=== PATIENT | female | born 1970 | race Caucasian/White ===

== ENCOUNTER 2018-03-20 16:28 | Inpatient (IN) | payer MEDICAID, OTHER ==
[2018-03-20] MEDS: SOD CHLORIDE 0.9% 500 ML IV (20:28)
[2018-03-20 20:56] LABS: ADD MAN DIFF? NO
[2018-03-20 20:57] LABS: BASOPHILS % 0.2 % (0.0-2.0); EOSINOPHILS % 0.4 % (0.0-7.0); HEMATOCRIT 40.1 % (37.0-47.0); HEMOGLOBIN 12.8 g/dl (12.0-16.0); LYMPHOCYTES # 1.4 10^3/ul (0.8-2.9); LYMPHOCYTES % 12.7 % (15.0-51.0); MEAN CORPUSCULAR HEMOGLOBIN 28.8 pg (29.0-33.0); MEAN CORPUSCULAR HGB CONC 31.9 g/dl (32.0-37.0); MEAN CORPUSCULAR VOLUME 90.1 fl (82.0-101.0); MEAN PLATELET VOLUME 11.1 fl (7.4-10.4); MONOCYTE # 0.8 10^3/ul (0.3-0.9); MONOCYTES % 7.3 % (0.0-11.0); NEUTROPHIL # 8.7 10^3/ul (1.6-7.5); PLATELET COUNT 222 10^3/UL (140-415); RED BLOOD COUNT 4.45 10^6/ul (4.20-5.40); RED CELL DISTRIBUTION WIDTH 14.6 % (11.5-14.5)
[2018-03-20 21:26] LABS: ALANINE AMINOTRANSFERASE 69 IU/L (13-69); ALBUMIN 3.7 g/dl (3.3-4.9); ALBUMIN/GLOBULIN RATIO 1.05; ALKALINE PHOSPHATASE 82 IU/L (42-121); ANION GAP 13 (8-16); ASPARTATE AMINO TRANSFERASE 46 IU/L (15-46); BILIRUBIN,INDIRECT 0.5 mg/dl (0-1.1); BILIRUBIN,TOTAL 0.5 mg/dl (0.2-1.3); BLOOD UREA NITROGEN 14 mg/dl (7-20); CALCIUM 8.8 mg/dl (8.4-10.2); CARBON DIOXIDE 26 mmol/L (21-31); CHLORIDE 103 mmol/L (97-110); CREATININE 0.74 mg/dl (0.44-1.00); GLUCOSE 107 mg/dl (70-220); LIPASE 94 U/L (23-300); SODIUM 138 mmol/L (135-144); TOTAL PROTEIN 7.2 g/dl (6.1-8.1)
[2018-03-20] MEDS: LIDOCAINE/MYLANTA 40 ML BTL PO (21:41)
[2018-03-20] MEDS: ONDANSETRON 4 MG INJ IV (21:41)
[2018-03-20 23:58] LABS: B-TYPE NATRIURETIC PEPTIDE 2850 PG/ML (0-125)
[2018-03-21] MEDS: ONDANSETRON 4 MG INJ IV (00:09)
[2018-03-21] MEDS: morphine 2 MG INJ IV (00:09)
[2018-03-21 00:21] LABS: ADD UMIC YES; UR ASCORBIC ACID NEGATIVE (NEGATIVE); UR BILIRUBIN (Dip) NEGATIVE (NEGATIVE); UR BLOOD (Dip) 2+ mg/dL (NEGATIVE); UR CLARITY CLEAR (CLEAR); UR COLOR YELLOW (YELLOW); UR GLUCOSE (Dip) NEGATIVE (NEGATIVE); UR KETONES (Dip) TRACE mg/dL (NEGATIVE); UR LEUKOCYTE ESTERASE (Dip) NEGATIVE Leu/ul (NEGATIVE); UR NITRITE (Dip) NEGATIVE (NEGATIVE); UR RBC 2 /HPF (0-5); UR SPECIFIC GRAVITY (Dip) 1.008 (1.003-1.030); UR SQUAMOUS EPITHELIAL CELL FEW /HPF (FEW); UR TOTAL PROTEIN (Dip) NEGATIVE (NEGATIVE); UR UROBILINOGEN (Dip) NEGATIVE (NEGATIVE); UR WBC 2 /HPF (0-5)
[2018-03-21] MEDS ORDERED: BISACODYL (EC) 5 MG TAB PO (02:30)
[2018-03-21] MEDS ORDERED: DOCUSATE SODIUM 100 MG CAP PO (02:30)
[2018-03-21] MEDS ORDERED: NACL 0.9% 3 ML SYG IV (02:30)
[2018-03-21] MEDS ORDERED: ONDANSETRON 4 MG INJ IV (02:30)
[2018-03-21] MEDS ORDERED: morphine 2 MG INJ IV (03:00)
[2018-03-21] MEDS: ALBUMIN HUMAN 25% 100 ML IV ×2 (03:12→04:14)
[2018-03-21 03:26] LABS: CREATINE KINASE 42 IU/L (23-200)
[2018-03-21 03:39] LABS: CK INDEX 1.5; CK-MB 0.62 ng/ml (0.0-2.4); TROPONIN-I 0.016 ng/ml (0.000-0.120)
[2018-03-21] MEDS: FUROSEMIDE 20 MG INJ IV (05:43)
[2018-03-21 06:44] LABS: ADD MAN DIFF? NO
[2018-03-21 07:00] LABS: BASOPHILS % 0.2 % (0.0-2.0); EOSINOPHILS # 0.1 10^3/ul (0.0-0.5); EOSINOPHILS % 0.5 % (0.0-7.0); HEMATOCRIT 35.3 % (37.0-47.0); HEMOGLOBIN 11.3 g/dl (12.0-16.0); LYMPHOCYTES % 9.9 % (15.0-51.0); MEAN CORPUSCULAR HEMOGLOBIN 28.5 pg (29.0-33.0); MEAN CORPUSCULAR VOLUME 89.1 fl (82.0-101.0); MEAN PLATELET VOLUME 11.5 fl (7.4-10.4); MONOCYTE # 0.7 10^3/ul (0.3-0.9); MONOCYTES % 7.1 % (0.0-11.0); NEUTROPHIL # 8.3 10^3/ul (1.6-7.5); NEUTROPHILS % 81.8 % (39.0-77.0); PLATELET COUNT 182 10^3/UL (140-415); RED BLOOD COUNT 3.96 10^6/ul (4.20-5.40); RED CELL DISTRIBUTION WIDTH 14.6 % (11.5-14.5)
[2018-03-21 07:00] LABS: WHITE BLOOD COUNT 10.1 10^3/ul (4.8-10.8)
[2018-03-21 07:23] LABS: ALANINE AMINOTRANSFERASE 60 IU/L (13-69); ALBUMIN 3.9 g/dl (3.3-4.9); ALBUMIN/GLOBULIN RATIO 1.25; ALKALINE PHOSPHATASE 66 IU/L (42-121); ANION GAP 15 (8-16); ASPARTATE AMINO TRANSFERASE 38 IU/L (15-46); BILIRUBIN,INDIRECT 0.9 mg/dl (0-1.1); BILIRUBIN,TOTAL 0.9 mg/dl (0.2-1.3); BLOOD UREA NITROGEN 12 mg/dl (7-20); CALCIUM 8.6 mg/dl (8.4-10.2); CARBON DIOXIDE 24 mmol/L (21-31); CHLORIDE 104 mmol/L (97-110); CHOL/HDL RATIO 3.4 RATIO; CHOLESTEROL 108 mg/dl (100-200); CREATININE 0.69 mg/dl (0.44-1.00); GLUCOSE 105 mg/dl (70-220); HDL CHOLESTEROL 31 mg/dl (37-92); LDL CHOLESTEROL,CALCULATED 58 mg/dl; MAGNESIUM 1.8 mg/dl (1.7-2.5); SODIUM 139 mmol/L (135-144); TRIGLYCERIDES 93 mg/dl (0-149)
[2018-03-21 07:40] LABS: HEMOGLOBIN A1C 5.5 % (0-5.9)
[2018-03-21] MEDS: ACETAMINOPHEN 325 MG TAB PO (09:17)
[2018-03-21 09:23] LABS: CREATINE KINASE 38 IU/L (23-200)
[2018-03-21] MEDS: ENOXAPARIN 30 MG/0.3 ML SYG SC (09:24)
[2018-03-21 09:35] LABS: CK INDEX 1.3; CK-MB 0.49 ng/ml (0.0-2.4); TROPONIN-I 0.017 ng/ml (0.000-0.120)
[2018-03-21] MEDS: PANTOPRAZOLE 40 MG INJ IV (12:16)
[2018-03-21] MEDS: FUROSEMIDE 40 MG INJ IV ×2 (12:17→17:33)
[2018-03-21 12:20] LABS: TROPONIN-I 0.014 ng/ml (0.000-0.120)
[2018-03-22] MEDS: FUROSEMIDE 40 MG INJ IV ×3 (06:00→17:39)
[2018-03-22] MEDS: PANTOPRAZOLE 40 MG INJ IV (08:10)
[2018-03-22] MEDS: ENOXAPARIN 30 MG/0.3 ML SYG SC (08:12)
[2018-03-22 10:02] LABS: ANION GAP 16 (8-16); BLOOD UREA NITROGEN 12 mg/dl (7-20); CALCIUM 9.1 mg/dl (8.4-10.2); CARBON DIOXIDE 32 mmol/L (21-31); CHLORIDE 97 mmol/L (97-110); CREATININE 0.76 mg/dl (0.44-1.00); GLUCOSE 105 mg/dl (70-220); MAGNESIUM 2.1 mg/dl (1.7-2.5); POTASSIUM 3.7 mmol/L (3.5-5.1); SODIUM 141 mmol/L (135-144)
[2018-03-22] MEDS: ACETAMINOPHEN 325 MG TAB PO ×2 (11:30→19:46)
[2018-03-23] MEDS: FUROSEMIDE 40 MG INJ IV ×2 (05:25→17:45)
[2018-03-23 07:19] LABS: ANION GAP 14 (8-16); BLOOD UREA NITROGEN 20 mg/dl (7-20); CARBON DIOXIDE 32 mmol/L (21-31); CHLORIDE 96 mmol/L (97-110); GLUCOSE 98 mg/dl (70-220); POTASSIUM 3.5 mmol/L (3.5-5.1); SODIUM 138 mmol/L (135-144)
[2018-03-23] MEDS: PANTOPRAZOLE 40 MG INJ IV (08:20)
[2018-03-23] MEDS: ENOXAPARIN 30 MG/0.3 ML SYG SC (08:21)
[2018-03-23] MEDS: POTASSIUM CHLORIDE 20 MEQ POWDER FOR ORAL SOLN PO (10:16)
[2018-03-23] MEDS: LISINOPRIL 5 MG TAB PO (10:19)
[2018-03-23] MEDS: ACETAMINOPHEN 325 MG TAB PO (20:09)
[2018-03-23] MEDS: GUAIFENESIN/DM 5ML CUP PO (20:58)
[2018-03-24] MEDS: FUROSEMIDE 40 MG INJ IV (06:54)
[2018-03-24 07:50] LABS: ANION GAP 13 (8-16); BLOOD UREA NITROGEN 22 mg/dl (7-20); CALCIUM 8.9 mg/dl (8.4-10.2); CARBON DIOXIDE 31 mmol/L (21-31); CHLORIDE 98 mmol/L (97-110); CREATININE 0.72 mg/dl (0.44-1.00); GLUCOSE 95 mg/dl (70-220); MAGNESIUM 2.1 mg/dl (1.7-2.5); POTASSIUM 4.1 mmol/L (3.5-5.1); SODIUM 138 mmol/L (135-144)
[2018-03-24] MEDS: GUAIFENESIN/DM 5ML CUP PO ×2 (08:24→14:16)
[2018-03-24] MEDS: LISINOPRIL 5 MG TAB PO (08:25)
[2018-03-24] MEDS: PANTOPRAZOLE 40 MG INJ IV (08:27)
[2018-03-24] MEDS: ENOXAPARIN 30 MG/0.3 ML SYG SC (08:31)
[2018-03-25] MEDS ORDERED: BUMETANIDE 1 MG TAB PO (09:00)
== END 2018-03-24 17:30 | disposition home or self-care (01) | DRG 292 ==
LOC: TEL 03-22 06:14 → E/R 16:28 → TEL 03-21 01:16
DX: I50.23 Acute on chronic systolic (congestive) heart failure (principal); I42.8 Other cardiomyopathies; I95.9 Hypotension, unspecified; I25.2 Old myocardial infarction; E66.9 Obesity, unspecified; Z68.34 Body mass index [BMI] 34.0-34.9, adult
CPT/HCPCS: 36415; 71045; 76705; 80048; 80053; 80061; 81001; 82550; 82553; 83036; 83690; 83735; 83880; 84443; 84484; 85025; 93005; 93306; 96374; 96375; 96376; 99285-25

== ENCOUNTER 2018-09-04 20:01 | Inpatient (IN) | payer MEDICAID ==
[2018-09-04 21:43] LABS: ADD MAN DIFF? NO
[2018-09-04] MEDS: METHYLPREDNISOLONE 125 MG INJ IV (21:46)
[2018-09-04 21:47] LABS: BASOPHILS % 0.4 % (0.0-2.0); EOSINOPHILS # 0.1 10^3/ul (0.0-0.5); EOSINOPHILS % 1.2 % (0.0-7.0); HEMATOCRIT 41.8 % (37.0-47.0); HEMOGLOBIN 13.3 g/dl (12.0-16.0); LYMPHOCYTES # 2.1 10^3/ul (0.8-2.9); LYMPHOCYTES % 23.9 % (15.0-51.0); MEAN CORPUSCULAR HEMOGLOBIN 28.5 pg (29.0-33.0); MEAN CORPUSCULAR HGB CONC 31.8 g/dl (32.0-37.0); MEAN CORPUSCULAR VOLUME 89.5 fl (82.0-101.0); MEAN PLATELET VOLUME 11.8 fl (7.4-10.4); MONOCYTE # 0.7 10^3/ul (0.3-0.9); MONOCYTES % 7.4 % (0.0-11.0); NEUTROPHILS % 66.8 % (39.0-77.0); PLATELET COUNT 214 10^3/UL (140-415); RED BLOOD COUNT 4.67 10^6/ul (4.20-5.40); RED CELL DISTRIBUTION WIDTH 13.4 % (11.5-14.5)
[2018-09-04 21:47] LABS: WHITE BLOOD COUNT 8.9 10^3/ul (4.8-10.8)
[2018-09-04] MEDS: ALBUTEROL 0.5% (NEB) 2.5 MG/0.5 ML AMP INH (21:57)
[2018-09-04 22:09] LABS: ANION GAP 8 (5-13); BLOOD UREA NITROGEN 21 mg/dl (7-20); CALCIUM 9.3 mg/dl (8.4-10.2); CARBON DIOXIDE 28 mmol/L (21-31); CHLORIDE 101 mmol/L (97-110); CREATININE 0.78 mg/dl (0.44-1.00); Estimated GFR > 60 mL/min (>60); GLUCOSE 103 mg/dl (70-220); POTASSIUM 4.5 mmol/L (3.5-5.1); SODIUM 137 mmol/L (135-144)
[2018-09-04 22:20] LABS: TROPONIN-I 0.017 ng/ml (0.000-0.120)
[2018-09-04] MEDS: NITROGLYCERIN (SL) 0.4 MG TAB SL (23:25)
[2018-09-04] MEDS: ALBUTEROL 0.083% (NEB) 2.5 MG/3 ML AMP NEB (23:40)
[2018-09-04] MEDS: NITROGLYCERIN 2% 1 GM OINT PKT TD (23:40)
[2018-09-04 23:48] LABS: B-TYPE NATRIURETIC PEPTIDE 3340 PG/ML (0-125)
[2018-09-05] MEDS ORDERED: NITROGLYCERIN (SL) 0.4 MG TAB SL
[2018-09-05] MEDS ORDERED: ACETAMINOPHEN 325 MG TAB PO
[2018-09-05] MEDS ORDERED: ONDANSETRON 4 MG INJ IV
[2018-09-05] MEDS: ASPIRIN 325 MG TAB PO (00:39)
[2018-09-05] MEDS: FUROSEMIDE 40 MG INJ IV ×3 (00:39→17:31)
[2018-09-05] MEDS ORDERED: NACL 0.9% 3 ML SYG IV (01:00)
[2018-09-05] MEDS: SPIRONOLACTONE 25 MG TAB PO (08:50)
[2018-09-05] MEDS: METOPROLOL (XL) 25 MG TAB PO (08:52)
[2018-09-05] MEDS: HEPARIN 5,000 UNIT/1 ML VIAL SC ×2 (08:54→20:19)
[2018-09-05] MEDS: LISINOPRIL 5 MG TAB PO (12:05)
[2018-09-06] MEDS: HYDROCODONE/APAP (5/325) TAB PO ×2 (00:27→23:24)
[2018-09-06 05:46] LABS: ADD MAN DIFF? NO
[2018-09-06 05:49] LABS: WHITE BLOOD COUNT 12.5 10^3/ul (4.8-10.8)
[2018-09-06 05:49] LABS: BASOPHILS % 0.2 % (0.0-2.0); EOSINOPHILS # 0.1 10^3/ul (0.0-0.5); EOSINOPHILS % 0.6 % (0.0-7.0); HEMOGLOBIN 13.9 g/dl (12.0-16.0); LYMPHOCYTES # 1.9 10^3/ul (0.8-2.9); LYMPHOCYTES % 15.1 % (15.0-51.0); MEAN CORPUSCULAR HEMOGLOBIN 28.4 pg (29.0-33.0); MEAN CORPUSCULAR HGB CONC 32.3 g/dl (32.0-37.0); MEAN CORPUSCULAR VOLUME 87.8 fl (82.0-101.0); MEAN PLATELET VOLUME 11.3 fl (7.4-10.4); MONOCYTES % 7.7 % (0.0-11.0); NEUTROPHIL # 9.5 10^3/ul (1.6-7.5); PLATELET COUNT 241 10^3/UL (140-415); RED CELL DISTRIBUTION WIDTH 13.8 % (11.5-14.5)
[2018-09-06] MEDS: FUROSEMIDE 40 MG INJ IV (06:00)
[2018-09-06 06:17] LABS: PHOSPHORUS 5.3 mg/dl (2.5-4.9)
[2018-09-06 06:20] LABS: ALANINE AMINOTRANSFERASE 62 IU/L (13-69); ALBUMIN 3.9 g/dl (3.3-4.9); ALBUMIN/GLOBULIN RATIO 1.21; ALKALINE PHOSPHATASE 92 IU/L (42-121); ANION GAP 8 (5-13); ASPARTATE AMINO TRANSFERASE 39 IU/L (15-46); BILIRUBIN,INDIRECT 0.2 mg/dl (0-1.1); BILIRUBIN,TOTAL 0.2 mg/dl (0.2-1.3); BLOOD UREA NITROGEN 32 mg/dl (7-20); CALCIUM 9.2 mg/dl (8.4-10.2); CARBON DIOXIDE 27 mmol/L (21-31); CHLORIDE 102 mmol/L (97-110); CREATININE 0.88 mg/dl (0.44-1.00); Estimated GFR > 60 mL/min (>60); GLUCOSE 103 mg/dl (70-220); POTASSIUM 4.2 mmol/L (3.5-5.1); SODIUM 137 mmol/L (135-144); TOTAL PROTEIN 7.1 g/dl (6.1-8.1)
[2018-09-06 06:24] LABS: B-TYPE NATRIURETIC PEPTIDE 1340 PG/ML (0-125)
[2018-09-06 06:27] LABS: HEMOGLOBIN A1C 5.5 % (0-5.9)
[2018-09-06] MEDS: AZITHROMYCIN 250 MG TAB PO (08:46)
[2018-09-06] MEDS: SPIRONOLACTONE 25 MG TAB PO (08:47)
[2018-09-06] MEDS: HEPARIN 5,000 UNIT/1 ML VIAL SC ×2 (08:48→20:30)
[2018-09-06] MEDS: METOPROLOL (XL) 25 MG TAB PO (09:00)
[2018-09-06] MEDS: LISINOPRIL 5 MG TAB PO (09:00)
[2018-09-06] MEDS: METOCLOPRAMIDE 10 MG INJ IV ×3 (13:59→23:24)
[2018-09-06] MEDS: PANTOPRAZOLE 40 MG INJ IV (17:20)
[2018-09-06] MEDS: FUROSEMIDE 20 MG TAB PO (17:21)
[2018-09-07] MEDS: PANTOPRAZOLE 40 MG INJ IV ×2 (05:41→18:39)
[2018-09-07] MEDS: FUROSEMIDE 20 MG TAB PO ×2 (05:42→18:00)
[2018-09-07] MEDS: METOCLOPRAMIDE 10 MG INJ IV ×4 (05:42→23:04)
[2018-09-07 06:12] LABS: ADD MAN DIFF? NO
[2018-09-07 06:17] LABS: BASOPHILS % 0.5 % (0.0-2.0); EOSINOPHILS # 0.1 10^3/ul (0.0-0.5); EOSINOPHILS % 2.2 % (0.0-7.0); HEMATOCRIT 42.6 % (37.0-47.0); HEMOGLOBIN 13.7 g/dl (12.0-16.0); LYMPHOCYTES # 1.8 10^3/ul (0.8-2.9); LYMPHOCYTES % 30.8 % (15.0-51.0); MEAN CORPUSCULAR HEMOGLOBIN 28.2 pg (29.0-33.0); MEAN CORPUSCULAR HGB CONC 32.2 g/dl (32.0-37.0); MEAN CORPUSCULAR VOLUME 87.8 fl (82.0-101.0); MEAN PLATELET VOLUME 11.8 fl (7.4-10.4); MONOCYTE # 0.7 10^3/ul (0.3-0.9); MONOCYTES % 11.9 % (0.0-11.0); NEUTROPHIL # 3.2 10^3/ul (1.6-7.5); NEUTROPHILS % 54.3 % (39.0-77.0); PLATELET COUNT 244 10^3/UL (140-415); RED BLOOD COUNT 4.85 10^6/ul (4.20-5.40); RED CELL DISTRIBUTION WIDTH 13.6 % (11.5-14.5)
[2018-09-07] MEDS ORDERED: PROPOFOL 200 MG INJ (07:00)
[2018-09-07 07:08] LABS: ANION GAP 7 (5-13); BLOOD UREA NITROGEN 28 mg/dl (7-20); CALCIUM 9.2 mg/dl (8.4-10.2); CARBON DIOXIDE 29 mmol/L (21-31); CHLORIDE 102 mmol/L (97-110); CREATININE 0.93 mg/dl (0.44-1.00); Estimated GFR > 60 mL/min (>60); GLUCOSE 86 mg/dl (70-220); POTASSIUM 4.3 mmol/L (3.5-5.1); SODIUM 138 mmol/L (135-144)
[2018-09-07 07:11] LABS: B-TYPE NATRIURETIC PEPTIDE 870 PG/ML (0-125)
[2018-09-07 07:14] LABS: PHOSPHORUS 4.9 mg/dl (2.5-4.9)
[2018-09-07 07:14] LABS: MAGNESIUM 2.1 mg/dl (1.7-2.5)
[2018-09-07] MEDS: HEPARIN 5,000 UNIT/1 ML VIAL SC ×2 (09:00→20:59)
[2018-09-07] MEDS ORDERED: FENTAnyl 50 MCG/ML VIAL IV (17:30)
[2018-09-07] MEDS ORDERED: ONDANSETRON 4 MG INJ IV (17:30)
[2018-09-07] MEDS: PROPOFOL 40 ML (17:56)
[2018-09-07] MEDS: LIDOCAINE 2% (SDV) 5 ML INJ (17:56)
[2018-09-07] MEDS: AZITHROMYCIN 250 MG TAB PO (18:39)
[2018-09-07] MEDS: METOPROLOL (XL) 25 MG TAB PO (18:40)
[2018-09-07] MEDS: SPIRONOLACTONE 25 MG TAB PO (18:40)
[2018-09-07] MEDS: LISINOPRIL 5 MG TAB PO (18:41)
[2018-09-07] MEDS: traZODone 50 MG TAB PO (23:25)
[2018-09-08] MEDS: METOCLOPRAMIDE 10 MG INJ IV (05:07)
[2018-09-08] MEDS: FUROSEMIDE 20 MG TAB PO (05:07)
[2018-09-08] MEDS: PANTOPRAZOLE 40 MG INJ IV (05:07)
[2018-09-08] MEDS: SPIRONOLACTONE 25 MG TAB PO (08:45)
[2018-09-08] MEDS: METOPROLOL (XL) 25 MG TAB PO (08:45)
[2018-09-08] MEDS: AZITHROMYCIN 250 MG TAB PO (08:47)
[2018-09-08] MEDS: LISINOPRIL 5 MG TAB PO (08:48)
[2018-09-08] MEDS: HEPARIN 5,000 UNIT/1 ML VIAL SC (08:55)
== END 2018-09-08 11:50 | disposition home or self-care (01) | DRG 293 ==
LOC: 6WM 23:43 → E/R 20:01
PROC: 0DB58ZX Excision of Esophagus, Via Natural or Artificial Opening Endoscopic, Diagnostic (ICD-10-PCS; principal; 2018-09-07 16:45)
PROC: 0DB78ZX Excision of Stomach, Pylorus, Via Natural or Artificial Opening Endoscopic, Diagnostic (ICD-10-PCS; 2018-09-07 16:45)
PROC: 0DB68ZX Excision of Stomach, Via Natural or Artificial Opening Endoscopic, Diagnostic (ICD-10-PCS; 2018-09-07 16:45)
DX: I11.0 Hypertensive heart disease with heart failure (principal); I27.20 Pulmonary hypertension, unspecified; I42.9 Cardiomyopathy, unspecified; I50.23 Acute on chronic systolic (congestive) heart failure; R07.9 Chest pain, unspecified; J06.9 Acute upper respiratory infection, unspecified; R10.13 Epigastric pain; R11.2 Nausea with vomiting, unspecified; K29.70 Gastritis, unspecified, without bleeding; K20.9 Esophagitis, unspecified; K29.80 Duodenitis without bleeding
CPT/HCPCS: 71045; 74176; 80048; 80053; 83036; 83735; 83880; 84100; 84484; 85025; 88305; 88312; 88313; 93005; 94644; 94645; 96374; 99285-25; G0378

== ENCOUNTER 2018-11-03 21:39 | Inpatient (IN) | payer MEDICAID ==
[2018-11-04 01:06] LABS: URINE BLOOD (Dip) POC 3+ (NEGATIVE); URINE GLUCOSE (Dip) POC Negative (NEGATIVE); URINE KETONES (Dip) POC Negative (NEGATIVE); URINE LEUKOCYTE EST (Dip) POC Trace (NEGATIVE); URINE NITRITE (Dip) POC Negative (NEGATIVE); URINE TOTAL PROTEIN POC 2+ (NEGATIVE)
[2018-11-04 01:38] LABS: ADD MAN DIFF? NO
[2018-11-04 01:39] LABS: BASOPHILS % 0.4 % (0.0-2.0); EOSINOPHILS # 0.1 10^3/ul (0.0-0.5); EOSINOPHILS % 1.4 % (0.0-7.0); HEMATOCRIT 40.5 % (37.0-47.0); HEMOGLOBIN 12.8 g/dl (12.0-16.0); LYMPHOCYTES # 1.3 10^3/ul (0.8-2.9); LYMPHOCYTES % 22.9 % (15.0-51.0); MEAN CORPUSCULAR HEMOGLOBIN 27.9 pg (29.0-33.0); MEAN CORPUSCULAR HGB CONC 31.6 g/dl (32.0-37.0); MEAN CORPUSCULAR VOLUME 88.4 fl (82.0-101.0); MONOCYTE # 0.6 10^3/ul (0.3-0.9); MONOCYTES % 9.7 % (0.0-11.0); NEUTROPHIL # 3.7 10^3/ul (1.6-7.5); NEUTROPHILS % 65.2 % (39.0-77.0); PLATELET COUNT 190 10^3/UL (140-415); RED BLOOD COUNT 4.58 10^6/ul (4.20-5.40); RED CELL DISTRIBUTION WIDTH 16.1 % (11.5-14.5)
[2018-11-04 01:39] LABS: WHITE BLOOD COUNT 5.7 10^3/ul (4.8-10.8)
[2018-11-04] MEDS: SOD CHLORIDE 0.9% 500 ML IV (01:40)
[2018-11-04] MEDS: ONDANSETRON 4 MG INJ IV ×2 (01:40→11:12)
[2018-11-04] MEDS: morphine 4 MG/ML VIAL IV (01:40)
[2018-11-04] MEDS: FAMOTIDINE 20 MG TAB PO (01:40)
[2018-11-04 02:04] LABS: ALANINE AMINOTRANSFERASE 36 IU/L (13-69); ALBUMIN 3.6 g/dl (3.3-4.9); ALBUMIN/GLOBULIN RATIO 1.12; ALKALINE PHOSPHATASE 80 IU/L (42-121); ANION GAP 9 (5-13); ASPARTATE AMINO TRANSFERASE 36 IU/L (15-46); BILIRUBIN,INDIRECT 0.4 mg/dl (0-1.1); BILIRUBIN,TOTAL 0.4 mg/dl (0.2-1.3); BLOOD UREA NITROGEN 20 mg/dl (7-20); CALCIUM 9.1 mg/dl (8.4-10.2); CARBON DIOXIDE 24 mmol/L (21-31); CHLORIDE 111 mmol/L (97-110); CREATININE 0.69 mg/dl (0.44-1.00); Estimated GFR > 60 mL/min (>60); GLUCOSE 98 mg/dl (70-220); LIPASE 141 U/L (23-300); POTASSIUM 3.9 mmol/L (3.5-5.1); SODIUM 144 mmol/L (135-144); TOTAL PROTEIN 6.8 g/dl (6.1-8.1)
[2018-11-04 02:20] LABS: TROPONIN-I 0.024 ng/ml (0.000-0.120)
[2018-11-04 03:33] LABS: ADD UMIC YES; UR ASCORBIC ACID NEGATIVE (NEGATIVE); UR BILIRUBIN (Dip) NEGATIVE (NEGATIVE); UR BLOOD (Dip) 3+ mg/dL (NEGATIVE); UR CLARITY CLOUDY (CLEAR); UR COLOR AMBER (YELLOW); UR GLUCOSE (Dip) NEGATIVE (NEGATIVE); UR KETONES (Dip) NEGATIVE (NEGATIVE); UR LEUKOCYTE ESTERASE (Dip) NEGATIVE Leu/ul (NEGATIVE); UR MUCUS FEW /HPF (NONE SEEN); UR NITRITE (Dip) NEGATIVE (NEGATIVE); UR RBC 22 /HPF (0-5); UR SPECIFIC GRAVITY (Dip) 1.027 (1.003-1.030); UR SQUAMOUS EPITHELIAL CELL MANY /HPF (FEW); UR TOTAL PROTEIN (Dip) 2+ mg/dl (NEGATIVE); UR UROBILINOGEN (Dip) 1+ mg/dL (NEGATIVE); UR WBC 16 /HPF (0-5)
[2018-11-04 03:42] LABS: B-TYPE NATRIURETIC PEPTIDE 4040 PG/ML (0-125)
[2018-11-04] MEDS: PIPER-TAZO 3.375 GM IV (PMX) 100 ML IVPB ×3 (03:48→18:16)
[2018-11-04] MEDS: IOHEXOL 300MG/ML 150 ML BTL (04:15)
[2018-11-04] MEDS: SOD CHLORIDE 0.9% 100 ML (04:15)
[2018-11-04] MEDS ORDERED: ONDANSETRON 4 MG INJ IV (06:00)
[2018-11-04] MEDS ORDERED: ACETAMINOPHEN 325 MG TAB PO ×2 (06:00→06:30)
[2018-11-04] MEDS ORDERED: NACL 0.9% 3 ML SYG IV (06:30)
[2018-11-04] MEDS ORDERED: NITROGLYCERIN (SL) 0.4 MG TAB SL (06:30)
[2018-11-04] MEDS ORDERED: BISACODYL (EC) 5 MG TAB PO (06:30)
[2018-11-04] MEDS: SOD CHLORIDE 0.9% 1,000 ML IV (07:08)
[2018-11-04] MEDS: HYDROmorphONE 0.5 MG/0.5 ML SYG IV ×2 (07:14→21:00)
[2018-11-04] MEDS: METOPROLOL (XL) 25 MG TAB PO (08:57)
[2018-11-04] MEDS: FUROSEMIDE 20 MG TAB PO ×2 (08:57→18:00)
[2018-11-04 08:58] LABS: CREATINE KINASE 72 IU/L (23-200)
[2018-11-04 09:10] LABS: CK INDEX 1.5
[2018-11-04] MEDS: LISINOPRIL 5 MG TAB PO (11:35)
[2018-11-04 12:24] LABS: CREATINE KINASE 66 IU/L (23-200)
[2018-11-04 12:37] LABS: CK INDEX 1.6; CK-MB 1.05 ng/ml (0.0-2.4); TROPONIN-I < 0.012 ng/ml (0.000-0.120)
[2018-11-04] MEDS: DEXTROSE 5%-0.45% NACL 1,000 ML IV (13:05)
[2018-11-05] MEDS: PIPER-TAZO 3.375 GM IV (PMX) 100 ML IVPB ×3 (00:13→12:11)
[2018-11-05] MEDS: FUROSEMIDE 20 MG TAB PO ×2 (06:00→17:40)
[2018-11-05 06:31] LABS: ADD MAN DIFF? NO
[2018-11-05 06:40] LABS: WHITE BLOOD COUNT 4.9 10^3/ul (4.8-10.8)
[2018-11-05 06:40] LABS: BASOPHILS % 0.4 % (0.0-2.0); EOSINOPHILS # 0.1 10^3/ul (0.0-0.5); EOSINOPHILS % 1.6 % (0.0-7.0); HEMATOCRIT 39.1 % (37.0-47.0); HEMOGLOBIN 12.5 g/dl (12.0-16.0); LYMPHOCYTES # 1.3 10^3/ul (0.8-2.9); LYMPHOCYTES % 26.1 % (15.0-51.0); MEAN CORPUSCULAR HEMOGLOBIN 28.2 pg (29.0-33.0); MEAN CORPUSCULAR VOLUME 88.3 fl (82.0-101.0); MEAN PLATELET VOLUME 11.2 fl (7.4-10.4); MONOCYTE # 0.5 10^3/ul (0.3-0.9); MONOCYTES % 11.1 % (0.0-11.0); NEUTROPHILS % 60.6 % (39.0-77.0); PLATELET COUNT 171 10^3/UL (140-415); RED BLOOD COUNT 4.43 10^6/ul (4.20-5.40); RED CELL DISTRIBUTION WIDTH 15.9 % (11.5-14.5)
[2018-11-05] MEDS: PANTOPRAZOLE 40 MG INJ IV (07:05)
[2018-11-05 07:23] LABS: ALANINE AMINOTRANSFERASE 36 IU/L (13-69); ALBUMIN 3.1 g/dl (3.3-4.9); ALBUMIN/GLOBULIN RATIO 1.14; ALKALINE PHOSPHATASE 54 IU/L (42-121); ANION GAP 8 (5-13); ASPARTATE AMINO TRANSFERASE 25 IU/L (15-46); BILIRUBIN,INDIRECT 0.8 mg/dl (0-1.1); BILIRUBIN,TOTAL 0.8 mg/dl (0.2-1.3); BLOOD UREA NITROGEN 13 mg/dl (7-20); CALCIUM 8.4 mg/dl (8.4-10.2); CARBON DIOXIDE 28 mmol/L (21-31); CHLORIDE 105 mmol/L (97-110); CREATININE 0.95 mg/dl (0.44-1.00); Estimated GFR > 60 mL/min (>60); GLUCOSE 101 mg/dl (70-220); MAGNESIUM 1.8 mg/dl (1.7-2.5); POTASSIUM 3.7 mmol/L (3.5-5.1); SODIUM 141 mmol/L (135-144); TOTAL PROTEIN 5.8 g/dl (6.1-8.1)
[2018-11-05] MEDS: METOPROLOL (XL) 25 MG TAB PO (09:00)
[2018-11-05] MEDS: LISINOPRIL 5 MG TAB PO (09:00)
[2018-11-05] MEDS: DEXTROSE 5%-0.45% NACL 1,000 ML IV (13:00)
[2018-11-05] MEDS: LACTOBACILLUS RHAMNOSUS CAP PO (21:05)
[2018-11-06] MEDS: FUROSEMIDE 20 MG TAB PO ×2 (06:00→17:45)
[2018-11-06] MEDS: PANTOPRAZOLE (EC) 40 MG TAB PO (06:18)
[2018-11-06] MEDS: METOPROLOL (XL) 25 MG TAB PO (08:11)
[2018-11-06] MEDS: LISINOPRIL 5 MG TAB PO (08:12)
[2018-11-06] MEDS: LACTOBACILLUS RHAMNOSUS CAP PO ×2 (08:13→20:20)
[2018-11-06 08:29] LABS: ADD MAN DIFF? NO
[2018-11-06 08:43] LABS: WHITE BLOOD COUNT 5.2 10^3/ul (4.8-10.8)
[2018-11-06 08:43] LABS: BASOPHILS % 0.6 % (0.0-2.0); EOSINOPHILS # 0.1 10^3/ul (0.0-0.5); EOSINOPHILS % 1.4 % (0.0-7.0); HEMATOCRIT 40.8 % (37.0-47.0); HEMOGLOBIN 12.9 g/dl (12.0-16.0); LYMPHOCYTES # 1.1 10^3/ul (0.8-2.9); LYMPHOCYTES % 20.7 % (15.0-51.0); MEAN CORPUSCULAR HEMOGLOBIN 27.9 pg (29.0-33.0); MEAN CORPUSCULAR HGB CONC 31.6 g/dl (32.0-37.0); MEAN CORPUSCULAR VOLUME 88.1 fl (82.0-101.0); MEAN PLATELET VOLUME 11.8 fl (7.4-10.4); MONOCYTE # 0.6 10^3/ul (0.3-0.9); MONOCYTES % 10.9 % (0.0-11.0); NEUTROPHIL # 3.4 10^3/ul (1.6-7.5); NEUTROPHILS % 66.2 % (39.0-77.0); PLATELET COUNT 185 10^3/UL (140-415); RED BLOOD COUNT 4.63 10^6/ul (4.20-5.40); RED CELL DISTRIBUTION WIDTH 15.9 % (11.5-14.5)
[2018-11-06 08:59] LABS: INR 1.19; PROTIME 15.2 Sec (11.9-14.9); PT RATIO 1.2
[2018-11-06 09:15] LABS: ALANINE AMINOTRANSFERASE 38 IU/L (13-69); ALBUMIN 3.3 g/dl (3.3-4.9); ALKALINE PHOSPHATASE 68 IU/L (42-121); ANION GAP 7 (5-13); ASPARTATE AMINO TRANSFERASE 30 IU/L (15-46); BILIRUBIN,INDIRECT 0.6 mg/dl (0-1.1); BILIRUBIN,TOTAL 0.6 mg/dl (0.2-1.3); BLOOD UREA NITROGEN 13 mg/dl (7-20); CALCIUM 9.1 mg/dl (8.4-10.2); CARBON DIOXIDE 29 mmol/L (21-31); CHLORIDE 105 mmol/L (97-110); CREATININE 0.85 mg/dl (0.44-1.00); Estimated GFR > 60 mL/min (>60); GLUCOSE 92 mg/dl (70-220); POTASSIUM 4.7 mmol/L (3.5-5.1); SODIUM 141 mmol/L (135-144); TOTAL PROTEIN 6.3 g/dl (6.1-8.1)
[2018-11-06] MEDS: HYDROmorphONE 0.5 MG/0.5 ML SYG IV (15:25)
[2018-11-06] MEDS: ONDANSETRON 4 MG INJ IV (18:40)
[2018-11-06] MEDS: KETOROLAC 30 MG INJ IV (20:24)
[2018-11-06] MEDS ORDERED: ACETAMINOPHEN 325 MG TAB PO (22:30)
[2018-11-07] MEDS: FUROSEMIDE 20 MG TAB PO ×2 (05:13→05:27)
[2018-11-07] MEDS: PANTOPRAZOLE (EC) 40 MG TAB PO (05:16)
[2018-11-07 07:24] LABS: ADD MAN DIFF? NO; BASOPHILS % 0.4 % (0.0-2.0); EOSINOPHILS # 0.1 10^3/ul (0.0-0.5); HEMATOCRIT 40.3 % (37.0-47.0); LYMPHOCYTES # 1.2 10^3/ul (0.8-2.9); LYMPHOCYTES % 21.1 % (15.0-51.0); MEAN CORPUSCULAR HEMOGLOBIN 28.6 pg (29.0-33.0); MEAN CORPUSCULAR HGB CONC 32.3 g/dl (32.0-37.0); MEAN CORPUSCULAR VOLUME 88.8 fl (82.0-101.0); MEAN PLATELET VOLUME 11.5 fl (7.4-10.4); MONOCYTE # 0.6 10^3/ul (0.3-0.9); MONOCYTES % 10.1 % (0.0-11.0); NEUTROPHIL # 3.7 10^3/ul (1.6-7.5); PLATELET COUNT 183 10^3/UL (140-415); RED BLOOD COUNT 4.54 10^6/ul (4.20-5.40); RED CELL DISTRIBUTION WIDTH 15.5 % (11.5-14.5)
[2018-11-07 07:24] LABS: WHITE BLOOD COUNT 5.6 10^3/ul (4.8-10.8)
[2018-11-07 07:42] LABS: LACTIC ACID 1.4 mmol/L (0.5-2.0)
[2018-11-07 08:00] LABS: LIPASE 232 U/L (23-300)
[2018-11-07 08:04] LABS: ALANINE AMINOTRANSFERASE 33 IU/L (13-69); ALBUMIN 3.4 g/dl (3.3-4.9); ALBUMIN/GLOBULIN RATIO 1.09; ALKALINE PHOSPHATASE 71 IU/L (42-121); ANION GAP 7 (5-13); ASPARTATE AMINO TRANSFERASE 34 IU/L (15-46); BILIRUBIN,INDIRECT 0.3 mg/dl (0-1.1); BILIRUBIN,TOTAL 0.3 mg/dl (0.2-1.3); BLOOD UREA NITROGEN 22 mg/dl (7-20); CARBON DIOXIDE 27 mmol/L (21-31); CHLORIDE 105 mmol/L (97-110); Estimated GFR 59 mL/min (>60); GLUCOSE 95 mg/dl (70-220); POTASSIUM 4.8 mmol/L (3.5-5.1); SODIUM 139 mmol/L (135-144); TOTAL PROTEIN 6.5 g/dl (6.1-8.1)
[2018-11-07 08:20] LABS: PROTIME 14.3 Sec (11.9-14.9); PT RATIO 1.1
[2018-11-07] MEDS: LACTOBACILLUS RHAMNOSUS CAP PO ×2 (08:54→21:16)
[2018-11-07] MEDS: METOPROLOL (XL) 25 MG TAB PO (08:54)
[2018-11-07] MEDS: LISINOPRIL 5 MG TAB PO (08:55)
[2018-11-07] MEDS: HYDROmorphONE 0.5 MG/0.5 ML SYG IV (11:24)
[2018-11-07] MEDS: KETOROLAC 30 MG INJ IV (15:21)
[2018-11-07] MEDS: LIDOCAINE/MYLANTA 40 ML BTL PO (18:24)
[2018-11-08] MEDS: PANTOPRAZOLE (EC) 40 MG TAB PO ×2 (05:32→20:28)
[2018-11-08 05:39] LABS: ADD MAN DIFF? NO
[2018-11-08 05:50] LABS: WHITE BLOOD COUNT 6.1 10^3/ul (4.8-10.8)
[2018-11-08 05:50] LABS: BASOPHILS % 0.3 % (0.0-2.0); EOSINOPHILS # 0.1 10^3/ul (0.0-0.5); HEMOGLOBIN 12.8 g/dl (12.0-16.0); LYMPHOCYTES # 1.2 10^3/ul (0.8-2.9); LYMPHOCYTES % 20.4 % (15.0-51.0); MEAN CORPUSCULAR HEMOGLOBIN 28.2 pg (29.0-33.0); MEAN CORPUSCULAR VOLUME 88.1 fl (82.0-101.0); MEAN PLATELET VOLUME 11.6 fl (7.4-10.4); MONOCYTE # 0.5 10^3/ul (0.3-0.9); MONOCYTES % 7.4 % (0.0-11.0); NEUTROPHIL # 4.3 10^3/ul (1.6-7.5); NEUTROPHILS % 70.6 % (39.0-77.0); PLATELET COUNT 189 10^3/UL (140-415); RED BLOOD COUNT 4.54 10^6/ul (4.20-5.40); RED CELL DISTRIBUTION WIDTH 15.4 % (11.5-14.5)
[2018-11-08 06:13] LABS: LACTIC ACID 1.1 mmol/L (0.5-2.0)
[2018-11-08 06:16] LABS: LIPASE 113 U/L (23-300)
[2018-11-08 06:21] LABS: ALANINE AMINOTRANSFERASE 32 IU/L (13-69); ALBUMIN 3.2 g/dl (3.3-4.9); ALBUMIN/GLOBULIN RATIO 1.14; ALKALINE PHOSPHATASE 65 IU/L (42-121); ANION GAP 6 (5-13); ASPARTATE AMINO TRANSFERASE 32 IU/L (15-46); BILIRUBIN,INDIRECT 0.6 mg/dl (0-1.1); BILIRUBIN,TOTAL 0.6 mg/dl (0.2-1.3); BLOOD UREA NITROGEN 21 mg/dl (7-20); CALCIUM 8.6 mg/dl (8.4-10.2); CARBON DIOXIDE 28 mmol/L (21-31); CHLORIDE 104 mmol/L (97-110); Estimated GFR > 60 mL/min (>60); GLUCOSE 98 mg/dl (70-220); POTASSIUM 5.2 mmol/L (3.5-5.1); SODIUM 138 mmol/L (135-144)
[2018-11-08] MEDS ORDERED: FUROSEMIDE 20 MG TAB PO (09:00)
[2018-11-08] MEDS: METOPROLOL (XL) 25 MG TAB PO (09:00)
[2018-11-08] MEDS: LISINOPRIL 5 MG TAB PO (09:00)
[2018-11-08] MEDS: LACTOBACILLUS RHAMNOSUS CAP PO ×2 (09:20→20:28)
[2018-11-08] MEDS: SUCRALFATE (100 MG/ML) 10ML CUP PO ×3 (14:01→20:27)
[2018-11-09] MEDS: PANTOPRAZOLE (EC) 40 MG TAB PO (08:52)
[2018-11-09] MEDS: DOCUSATE SODIUM 100 MG CAP PO (08:52)
[2018-11-09] MEDS: LACTOBACILLUS RHAMNOSUS CAP PO (08:52)
[2018-11-09] MEDS: SUCRALFATE (100 MG/ML) 10ML CUP PO ×3 (08:52→16:38)
[2018-11-09] MEDS: METOPROLOL (XL) 25 MG TAB PO (08:52)
[2018-11-09] MEDS: LISINOPRIL 5 MG TAB PO (08:53)
[2018-11-09] MEDS: HYOSCYAMINE 0.125 MG SUBL TAB SL (14:09)
[2018-11-10] MEDS ORDERED: FUROSEMIDE 20 MG TAB PO (09:00)
== END 2018-11-09 17:23 | disposition home or self-care (01) | DRG 293 ==
LOC: E/R 21:39 → 5EC 11-04 05:47
PROVIDERS: Family Medicine
PROC: CF1C1ZZ Planar Nuclear Medicine Imaging of Hepatobiliary System, All using Technetium 99m (Tc-99m) (ICD-10-PCS; principal; 2018-11-04)
DX: I11.0 Hypertensive heart disease with heart failure (principal); I50.43 Acute on chronic combined systolic (congestive) and diastolic (congestive) heart failure; I27.20 Pulmonary hypertension, unspecified; Z91.14 Patient's other noncompliance with medication regimen; K21.9 Gastro-esophageal reflux disease without esophagitis; I42.9 Cardiomyopathy, unspecified; D25.9 Leiomyoma of uterus, unspecified; K81.1 Chronic cholecystitis; I08.1 Rheumatic disorders of both mitral and tricuspid valves; K29.50 Unspecified chronic gastritis without bleeding
CPT/HCPCS: 36415; 71045; 74018; 74177; 76705; 78226; 80053; 81001; 81003; 81025; 82550; 82553; 83605; 83690; 83735; 83880; 84484; 85025; 85610; 87338; 93005; 93306; 96361; 96365; 96375; 99285-25; G0378